=== PATIENT | female | born 1990 | race African-American/Black ===

== ENCOUNTER 2017-05-09 14:32 | Inpatient (IN) ==
[2017-05-09 16:16] LABS: Basophils % 0.3 % (0.0-0.8); Eosinophils % 0.2 % (0.00-10.9); Hematocrit 30.5 VOL% (35.7-47.0); Hemoglobin 9.4 GM/DL (12.0-16.0); Immature Granulocytes % 0.3 %; Immature Granulocytes Absolute 0.02 #; Lymphocytes # 1.2 10*3/uL (1.4-4.0); Lymphocytes % 18.9 % (21.3-54.2); Mean Corpuscular HGB Conc 30.8 GM/DL (32-36); Mean Corpuscular Hemoglobin 22 PG (27-34); Mean Corpuscular Volume 69.6 FL (87-102); Mean Platelet Volume 11.4 FL (9.6-12.0); Monocytes # 0.4 10*3/uL (0.11-0.8); Monocytes % 6.4 % (1.7-12.7); Neutrophils # 4.6 10*3/uL (1.4-7.4); Neutrophils % 73.9 % (38.7-73.9); Platelet Count 270 T/CUMM (130-400); Red Blood Count 4.38 MC/CUMM (3.8-5.5); Red Cell Distribution Width 18.9 % (9.3-17.3); White Blood Count 6.2 T/CUMM (4-12)
[2017-05-09 16:24] LABS: Apearance,Urine CLOUDY (Clear); Bilirubin,Urine Negative (Negative); Blood, Urine Negative (Negative); Glucose,Urine (UA) Negative (Negative); Ketones,Urine Negative (Negative); Mucus,Urine Occasional /LPF (Occasional); Nitrite,Urine Negative (Negative); Protein,Urine 30 MG/DL; RBC,Urine 9 /HPF (0-4); Squamous Epithelial Cell,Urine Many /HPF (0-10); Urine Color Yellow (Yellow); Urine Specific Gravity 1.006 (1.001-1.035); Urine Urobilinogen < 2.0 EU/DL (0.2-1.0); WBC,Urine 10 /HPF (0-6)
[2017-05-09 16:25] LABS: INR 0.9; PT Patient Result 9.5 SECS; Partial Thromboplastin Time 26.4 SECS (0-40)
[2017-05-09 16:42] LABS: Alanine Aminotransferase 15 U/L (13-56); Albumin 2.4 G/DL (3.4-5.0); Alkaline Phosphatase 188 U/L (45-117); Aspartate Amino Transferase 13 U/L (0-37); Bilirubin,Direct < 0.100 MG/DL (0.0-0.20); Blood Urea Nitrogen 4 MG/DL (7-18); Calcium 8.7 MG/DL (8.5-10.1); Glucose 99 MG/DL (74-106); Osmolality,Calculated 277.3 MOS/KG (273-304); Potassium 3.9 MMOL/L (3.5-5.1); Sodium 141 MMOL/L (136-145); Total Protein 5.8 G/DL (6.4-8.3); Uric Acid 4.7 MG/DL (2.6-6.0)
[2017-05-09] MEDS ORDERED: ONDANSETRON 4 MG/2 ML VIAL IV PRN (17:39)
[2017-05-09] MEDS: LABETALOL 100 MG TABLET PO SCH ×2 (18:41→21:01)
[2017-05-09] MEDS: LACTATED RINGERS 1,000 ML IV SCH (19:29)
[2017-05-10] MEDS: BUTORPHANOL 2 MG/ML VIAL IV PRN ×2 (00:55→12:05)
[2017-05-10] MEDS: LACTATED RINGERS 1,000 ML IV SCH ×2 (02:10→10:34)
[2017-05-10] MEDS ORDERED: AMPICILLIN 2,000 MG VIAL IM SCH (06:00)
[2017-05-10] MEDS ORDERED: SODIUM CHLORIDE 0.9% 50 ML IV ONE (06:42)
[2017-05-10] MEDS ORDERED: OXYTOCIN/LR 20 UNIT/1,000 ML BAG IV SCH (07:00)
[2017-05-10] MEDS ORDERED: AMPICILLIN INJ 2,000 MG in SODIUM CHLORIDE 0.9% 100 ML IV SCH (08:00)
[2017-05-10] MEDS ORDERED: MEPERIDINE 50 MG/1 ML VIAL IV PRN (09:09)
[2017-05-10] MEDS: LABETALOL 100 MG TABLET PO SCH ×2 (09:23→20:45)
[2017-05-10] MEDS ORDERED: hydrOXYzine HCL 25 MG/1 ML VIAL IM PRN (11:11)
[2017-05-10] MEDS ORDERED: ePHEDrine 50 MG/ML AMP IV PRN (11:11)
[2017-05-10] MEDS ORDERED: PROMETHAZINE 25 MG/1 ML VIAL IM ONE (11:11)
[2017-05-10] MEDS ORDERED: FAMOTIDINE 20 MG/2 ML VIAL IV ONE (11:11)
[2017-05-10] MEDS ORDERED: diphenhydrAMINE 50 MG/1 ML VIAL IV PRN (11:11)
[2017-05-10] MEDS ORDERED: fentaNYL 2 MCG/ROPIV 0.2% EPID 150 ML EPIDURAL SCH (11:11)
[2017-05-10] MEDS ORDERED: CITRIC ACID/SODIUM CITRATE 30 ML UDCUP PO ONE (11:11)
[2017-05-10] MEDS ORDERED: miSOPROStol 200 MCG TABLET ONE (11:38)
[2017-05-10] MEDS ORDERED: LIDOCAINE 1% 50 ML VIAL ONE (11:38)
[2017-05-10] MEDS ORDERED: LANOLIN 50% CREAM 0.3 OZ TUBE TOP PRN (12:41)
[2017-05-10] MEDS ORDERED: MEASLES/MUMPS/RUBELLA VACCINE 0.5 ML VIAL SUBCUT ONE (12:41)
[2017-05-10] MEDS ORDERED: RHO(D) IMMUNE GLOBULIN 300 MCG SYRINGE IM ONE (12:41)
[2017-05-10] MEDS ORDERED: BENZOCAINE 20%/MENTHOL 0.5% SPRAY 56 GM CAN TOP PRN (12:41)
[2017-05-10] MEDS ORDERED: ACETAMINOPHEN 325 MG TABLET PO PRN (12:41)
[2017-05-10] MEDS ORDERED: IBUPROFEN 800 MG TABLET PO PRN (12:41)
[2017-05-10] MEDS ORDERED: HYDROCORTISONE 2.5% RECTAL CREAM 30 GM TUBE TOP PRN (12:41)
[2017-05-10] MEDS ORDERED: oxyCODONE/ACETAMINOPHEN 5-325 MG TABLET PO PRN ×2 (12:41)
[2017-05-10] MEDS ORDERED: ONDANSETRON 4 MG/2 ML VIAL IV PRN (12:41)
[2017-05-10] MEDS ORDERED: BISACODYL 10 MG SUPP RECTAL PRN (12:41)
[2017-05-10] MEDS ORDERED: DIPH/TET/ACEL PERT BOOSTER VACCINE 0.5 ML VIAL IM ONE (12:41)
[2017-05-10] MEDS ORDERED: WITCH HAZEL PADS 100/JAR TOP PRN (12:41)
[2017-05-10] MEDS ORDERED: OXYTOCIN/LR 20 UNIT/1,000 ML BAG IV ONE (12:41)
[2017-05-10] MEDS: DOCUSATE SODIUM 100 MG CAPSULE PO SCH (20:45)
[2017-05-11] MEDS ORDERED: MULTIVITAMIN (PRENATAL) TABLET PO SCH (09:00)
[2017-05-11 10:01] LABS: Basophils % 0.2 % (0.0-0.8); Hematocrit 26.1 VOL% (35.7-47.0); Hemoglobin 8.3 GM/DL (12.0-16.0); Immature Granulocytes % 0.9 %; Immature Granulocytes Absolute 0.11 #; Lymphocytes # 1.9 10*3/uL (1.4-4.0); Lymphocytes % 14.5 % (21.3-54.2); Mean Corpuscular HGB Conc 31.8 GM/DL (32-36); Mean Corpuscular Hemoglobin 22 PG (27-34); Mean Corpuscular Volume 68.5 FL (87-102); Mean Platelet Volume 11.5 FL (9.6-12.0); Monocytes # 1.1 10*3/uL (0.11-0.8); Monocytes % 8.8 % (1.7-12.7); Neutrophils # 9.7 10*3/uL (1.4-7.4); Neutrophils % 75.6 % (38.7-73.9); Platelet Count 259 T/CUMM (130-400); Red Blood Count 3.81 MC/CUMM (3.8-5.5); White Blood Count 12.8 T/CUMM (4-12)
[2017-05-11] MEDS: LABETALOL 100 MG TABLET PO SCH (10:29)
[2017-05-11] MEDS: DOCUSATE SODIUM 100 MG CAPSULE PO SCH ×2 (10:29→21:55)
[2017-05-11] MEDS: FERROUS SULFATE 325 MG TABLET PO SCH ×2 (10:36→21:55)
[2017-05-12 07:29] VITALS: BP 134/72
[2017-05-12] MEDS: LABETALOL 100 MG TABLET PO SCH (09:54)
[2017-05-12] MEDS: DOCUSATE SODIUM 100 MG CAPSULE PO SCH (09:54)
[2017-05-12] MEDS: FERROUS SULFATE 325 MG TABLET PO SCH (09:55)
== END 2017-05-12 11:40 | disposition home or self-care (01) | DRG 560 ==
LOC: N.LDOUT 14:32 → N.LD 14:34 → N.OB 05-10 15:06
PROVIDERS: ADMIT Specialist; ATTEND Specialist

== ENCOUNTER 2022-06-30 16:15 | Inpatient (IN) ==
[2022-06-30 17:14] LABS: Bacteria,Urine Moderate /HPF (Few); Mucus,Urine Moderate /LPF (Occasional); Squamous Epithelial Cell,Urine Occasional /HPF (0-10)
[2022-06-30 17:15] LABS: Bilirubin,Urine Negative (Negative); Blood, Urine Negative (Negative); Glucose,Urine (UA) Negative (Negative); Ketones,Urine 15 mg/dL (Negative); Nitrite,Urine Negative (Negative); Protein,Urine Negative (Negative); Urine Appearance Clear (Clear); Urine Color Yellow (Yellow); Urine Urobilinogen 0.2 eU/dL (<2.0)
[2022-06-30] MEDS ORDERED: CARBOPROST TROMETHAMINE 250 MCG/ML AMP IM PRN ×2 (18:37)
[2022-06-30] MEDS ORDERED: OXYTOCIN/LR 20 UNIT/1,000 ML BAG IV ONE (18:37)
[2022-06-30] MEDS ORDERED: TRANEXAMIC ACID 1,000 MG in SODIUM CHLORIDE 0.9% 100 ML IV PRN (18:37)
[2022-06-30] MEDS ORDERED: MEPERIDINE 50 MG/1 ML VIAL IV PRN (18:37)
[2022-06-30] MEDS ORDERED: ONDANSETRON 4 MG/2 ML VIAL IV PRN (18:37)
[2022-06-30] MEDS ORDERED: TERBUTALINE 1 MG/1 ML VIAL SUBCUT PRN (18:37)
[2022-06-30] MEDS ORDERED: LACTATED RINGERS 500 ML IV PRN (18:37)
[2022-06-30] MEDS ORDERED: METHYLERGONOVINE 0.2 MG/1 ML AMP IM PRN (18:37)
[2022-06-30] MEDS ORDERED: miSOPROStoL 200 MCG TABLET RECTAL PRN (18:37)
[2022-06-30] MEDS ORDERED: LIDOCAINE 1% 50 ML VIAL MISC INJ ONE (18:37)
[2022-06-30] MEDS: LACTATED RINGERS 1,000 ML IV SCH (18:57)
[2022-06-30 19:02] LABS: Basophils % 0.3 % (0.0-0.8); Eosinophils % 0.4 % (0.00-10.9); Hematocrit 27.7 VOL% (35.7-47.0); Hemoglobin 7.9 GM/DL (12.0-16.0); Immature Granulocytes % 0.6 %; Immature Granulocytes Absolute 0.05 #; Lymphocytes # 1.4 10*3/uL (1.4-4.0); Lymphocytes % 17.8 % (21.3-54.2); Mean Corpuscular HGB Conc 28.5 GM/DL (32-36); Monocytes # 0.6 10*3/uL (0.11-0.8); Monocytes % 7.3 % (1.7-12.7); NRBC # 0.02 10*3/uL; Neutrophils % 73.6 % (38.7-73.9); Platelet Count 320 T/CUMM (130-400); Red Cell Distribution Width 23.6 % (9.3-17.3); White Blood Count 7.8 T/CUMM (4-12)
[2022-06-30 19:20] LABS: Albumin 2.5 G/DL (3.4-5.0); Bilirubin,Total 0.4 MG/DL (0.20-1.00); Calcium 8.6 MG/DL (8.5-10.1); Osmolality,Calculated 275.3 MOS/KG (273-304); Potassium 3.7 MMOL/L (3.5-5.1); Total Protein 6.7 G/DL (6.4-8.2)
[2022-06-30 19:24] LABS: Hypochromia 3+; Microcytosis 3+; Platelet Estimate Adequate
[2022-06-30 19:25] LABS: Anisocytosis 3+; Ovalocytes 1+; Poikilocytosis 1+; Polychromasia 1+
[2022-06-30] MEDS: CLINDAMYCIN INJ 900 MG/50 ML PREMIX IV SCH (21:11)
[2022-07-01] MEDS: LACTATED RINGERS 1,000 ML IV SCH ×2 (03:08→13:03)
[2022-07-01] MEDS ORDERED: miSOPROStoL 200 MCG TABLET VAG PRN (04:30)
[2022-07-01] MEDS: OXYTOCIN/LR 20 UNIT/1,000 ML BAG IV SCH ×2 (04:35→21:18)
[2022-07-01] MEDS: CLINDAMYCIN INJ 900 MG/50 ML PREMIX IV SCH ×3 (04:36→20:00)
[2022-07-01] MEDS ORDERED: LACTATED RINGERS 1,000 ML IV ONE (16:46)
[2022-07-01] MEDS ORDERED: NALOXONE 0.4 MG/ML VIAL IV PRN (16:46)
[2022-07-01] MEDS ORDERED: FAMOTIDINE 20 MG/2 ML VIAL IV ONE (16:46)
[2022-07-01] MEDS ORDERED: ePHEDrine 50 MG/ML VIAL IV PRN (16:46)
[2022-07-01] MEDS ORDERED: CITRIC ACID/SODIUM CITRATE 30 ML UDCUP PO ONE (16:46)
[2022-07-01] MEDS ORDERED: hydrOXYzine HCL 25 MG/1 ML VIAL IM PRN (16:46)
[2022-07-01] MEDS ORDERED: diphenhydrAMINE 50 MG/1 ML VIAL IV PRN ×2 (16:46)
[2022-07-01] MEDS ORDERED: PROMETHAZINE 25 MG/1 ML VIAL IM ONE (16:46)
[2022-07-01] MEDS ORDERED: fentaNYL 2 MCG/ROPIV 0.2% EPID 100 ML EPIDURAL SCH (17:00)
[2022-07-01] MEDS ORDERED: METHYLERGONOVINE 0.2 MG/1 ML AMP ONE (17:58)
[2022-07-01] MEDS ORDERED: OXYTOCIN/LR 20 UNIT/1,000 ML BAG IV ONE ×2 (17:58→22:50)
[2022-07-01] MEDS ORDERED: SODIUM CHLORIDE 0.9% 0 ML IV ONE (17:58)
[2022-07-01] MEDS ORDERED: CARBOPROST TROMETHAMINE 250 MCG/ML AMP IM ONE (17:58)
[2022-07-01] MEDS ORDERED: TRANEXAMIC ACID 1,000 MG/10 ML VIAL ONE (17:58)
[2022-07-01] MEDS ORDERED: miSOPROStoL 200 MCG TABLET ONE (17:58)
[2022-07-01 19:20] LABS: Cord Venous Blood HCO3 17.2 MMOL/L; Cord Venous Blood PCO2 36.2 MMHG; Cord Venous Blood PO2 29.1
[2022-07-01] MEDS ORDERED: LANOLIN 50% CREAM 0.3 OZ TUBE TOP PRN (22:50)
[2022-07-01] MEDS ORDERED: BENZOCAINE 20%/MENTHOL 0.5% SPRAY 56 GM CAN TOP PRN (22:50)
[2022-07-01] MEDS ORDERED: HYDROCORTISONE 2.5% RECTAL CREAM 30 GM TUBE TOP PRN (22:50)
[2022-07-01] MEDS ORDERED: RHO(D) IMMUNE GLOBULIN 300 MCG SYRINGE IM ONE (22:50)
[2022-07-01] MEDS ORDERED: MEASLES/MUMPS/RUBELLA VACCINE 0.5 ML VIAL SUBCUT ONE (22:50)
[2022-07-01] MEDS ORDERED: ACETAMINOPHEN 325 MG TABLET PO PRN (22:50)
[2022-07-01] MEDS ORDERED: oxyCODONE/ACETAMINOPHEN 5-325 MG TABLET PO PRN ×2 (22:50)
[2022-07-01] MEDS ORDERED: BISACODYL 10 MG SUPP RECTAL PRN (22:50)
[2022-07-01] MEDS ORDERED: WITCH HAZEL PADS 100/JAR TOP PRN (22:50)
[2022-07-01] MEDS ORDERED: DIPH/TET/ACEL PERT BOOSTER VACCINE 0.5 ML VIAL IM ONE (22:50)
[2022-07-01] MEDS ORDERED: ONDANSETRON 4 MG/2 ML VIAL IV PRN (22:50)
[2022-07-01] MEDS: IBUPROFEN 800 MG TABLET PO PRN (22:58)
[2022-07-02 04:51] LABS: Basophils % 0.2 % (0.0-0.8); Eosinophils % 0.1 % (0.00-10.9); Hemoglobin 7.2 GM/DL (12.0-16.0); Immature Granulocytes % 0.7 %; Immature Granulocytes Absolute 0.07 #; Lymphocytes # 1.3 10*3/uL (1.4-4.0); Lymphocytes % 11.7 % (21.3-54.2); Mean Corpuscular HGB Conc 28.8 GM/DL (32-36); Monocytes % 9.1 % (1.7-12.7); NRBC # 0.03 10*3/uL; Neutrophils % 78.2 % (38.7-73.9); Platelet Count 333 T/CUMM (130-400); Red Blood Count 4.03 MC/CUMM (3.8-5.5); Red Cell Distribution Width 23.4 % (9.3-17.3); White Blood Count 10.8 T/CUMM (4-12)
[2022-07-02] MEDS: DOCUSATE SODIUM 100 MG CAPSULE PO SCH ×3 (08:49→22:20)
[2022-07-02] MEDS: IRON (CARBONYL)/VIT C/B12/FA TABLET PO SCH (10:01)
[2022-07-02] MEDS: IBUPROFEN 800 MG TABLET PO PRN (12:18)
[2022-07-03] MEDS: DOCUSATE SODIUM 100 MG CAPSULE PO SCH (08:52)
[2022-07-03] MEDS: IRON (CARBONYL)/VIT C/B12/FA TABLET PO SCH (08:52)
[2022-07-03 09:03] VITALS: BP 132/73
== END 2022-07-03 10:40 | disposition home or self-care (01) | DRG 560 ==
LOC: N.LDOUT 16:15 → N.LD 16:15 → N.LDOUT 16:25 → N.LD 17:31 → N.OB 07-02 07:57
PROVIDERS: ADMIT Specialist; ATTEND Specialist